=== PATIENT | female | born 1940 | race Caucasian/White ===

== ENCOUNTER 2020-11-11 17:35 | Inpatient (IN) | payer MEDICARE, OTHER ==
[~2020-11-11] VITALS: Ht 144.8 cm; Wt 41.5 kg
[2020-11-12 03:31] LABS: HEMOGLOBIN 10.8 gm/dl (12.3-15.3); RED BLOOD COUNT 3.62 M/UL (4.00-5.10); WHITE BLOOD COUNT 7.9 K/UL (4.5-11.0)
[2020-11-12 04:03] LABS: BUN/CREATININE RATIO 16 (0-10)
[2020-11-12] MEDS ORDERED: NITROGLYCERIN0.4 MG SL (07:22)
[2020-11-12] MEDS ORDERED: NORVASC5 MG PO (07:23)
[2020-11-12] MEDS ORDERED: CLOPIDOGREL75 MG PO (07:23)
[2020-11-12] MEDS ORDERED: FUROSEMIDE20 MG PO (07:24)
[2020-11-12] MEDS ORDERED: ATORVASTATIN CA80 MG PO (07:24)
[2020-11-12] MEDS ORDERED: LOPRESSOR 50 MG50 MG PO (07:25)
[2020-11-12] MEDS ORDERED: K-TAB ER10 MEQ PO (07:26)
[2020-11-12] MEDS ORDERED: ATIVAN 1MG TABLE1 MG PO (12:28)
[2020-11-12] MEDS ORDERED: LISINOPRIL20 MG PO (12:28)
[2020-11-13 06:37] LABS: HEMOGLOBIN 9.5 gm/dl (12.3-15.3)
[2020-11-13 06:39] LABS: RED BLOOD COUNT 3.03 M/UL (4.00-5.10); WHITE BLOOD COUNT 11.2 K/UL (4.5-11.0)
[2020-11-13 07:09] LABS: BUN/CREATININE RATIO 16 (0-10)
[2020-11-14 06:50] LABS: BUN/CREATININE RATIO 18 (0-10)
[2020-11-14 06:56] LABS: HEMOGLOBIN 9.5 gm/dl (12.3-15.3); RED BLOOD COUNT 3.21 M/UL (4.00-5.10)
[2020-11-14 07:01] LABS: WHITE BLOOD COUNT 7.8 K/UL (4.5-11.0)
[2020-11-15 04:34] LABS: BUN/CREATININE RATIO 25 (0-10)
[2020-11-15 05:10] LABS: HEMOGLOBIN 9.5 gm/dl (12.3-15.3); RED BLOOD COUNT 3.16 M/UL (4.00-5.10); WHITE BLOOD COUNT 7.4 K/UL (4.5-11.0)
[2020-11-16 10:02] LABS: WHITE BLOOD COUNT 5.9 K/UL (4.5-11.0)
[2020-11-16 10:03] LABS: HEMOGLOBIN 11.6 gm/dl (12.3-15.3); RED BLOOD COUNT 3.75 M/UL (4.00-5.10)
[2020-11-17 05:20] LABS: HEMOGLOBIN 10.4 gm/dl (12.3-15.3)
[2020-11-17 05:24] LABS: RED BLOOD COUNT 3.36 M/UL (4.00-5.10); WHITE BLOOD COUNT 8.5 K/UL (4.5-11.0)
[2020-11-18 07:30] LABS: HEMOGLOBIN 10.4 gm/dl (12.3-15.3); RED BLOOD COUNT 3.47 M/UL (4.00-5.10); WHITE BLOOD COUNT 8.9 K/UL (4.5-11.0)
[2020-11-19 03:40] LABS: HEMOGLOBIN 10.2 gm/dl (12.3-15.3); RED BLOOD COUNT 3.29 M/UL (4.00-5.10); WHITE BLOOD COUNT 8.3 K/UL (4.5-11.0)
[2020-11-20 04:03] LABS: HEMOGLOBIN 10.6 gm/dl (12.3-15.3); RED BLOOD COUNT 3.43 M/UL (4.00-5.10); WHITE BLOOD COUNT 8.8 K/UL (4.5-11.0)
[2020-11-20 04:32] LABS: BUN/CREATININE RATIO 45 (0-10)
[2020-11-21 06:42] LABS: HEMOGLOBIN 9.8 gm/dl (12.3-15.3); RED BLOOD COUNT 3.17 M/UL (4.00-5.10); WHITE BLOOD COUNT 10.5 K/UL (4.5-11.0)
[2020-11-21 07:12] LABS: BUN/CREATININE RATIO 38 (0-10)
[2020-11-21] MEDS ORDERED: ASPIRIN EC325 MG PO (10:49)
[2020-11-22 04:21] LABS: HEMOGLOBIN 10.5 gm/dl (12.3-15.3); RED BLOOD COUNT 3.4 M/UL (4.00-5.10)
[2020-11-22 04:42] LABS: BUN/CREATININE RATIO 42 (0-10)
[2020-11-23 06:20] LABS: BUN/CREATININE RATIO 34 (0-10)
[2020-11-23 06:23] LABS: HEMOGLOBIN 10.2 gm/dl (12.3-15.3); RED BLOOD COUNT 3.32 M/UL (4.00-5.10); WHITE BLOOD COUNT 10.4 K/UL (4.5-11.0)
[2020-11-25 04:09] LABS: HEMOGLOBIN 10.6 gm/dl (12.3-15.3); RED BLOOD COUNT 3.47 M/UL (4.00-5.10); WHITE BLOOD COUNT 10.5 K/UL (4.5-11.0)
[2020-11-25 04:30] LABS: BUN/CREATININE RATIO 44 (0-10)
--- NOTE | 2020-11-25 11:04 | NUR ---
LATE ENTRY FOR 11/21/20 AT 1745THE PATIENTS SON HAD JUST LEFT [facility] AND PARTIALLY CLOSED THE DOOR I HAD NOTICED THE ALARM HAD NOT WENT OFF AND THE DOOR WAS PARTIALLY CLOSED SO I WENT IN TO CHECK ON HER AND FOUND THE PATIENT SITTING UP IN THE FLOOR AT THE FOOT OF THE BED. KOLBY THE BROILER MANAGER HELPED ME PLACE HER BACK INTO BED AND I COMPLETED A HEAD TO TOE ASSESSMENT. THE PATIENT HAD A SKIN TEAR WITH SOME BRUISING TO THE RIGHT ELBOW, NO OTHER OPEN PLACES OR WOUNDS NOTICED. I CALLED DR PAREKH AND NOTIFIED HIM AND HE THEN ORDERED A RIGHT ELBOW AND RIGHT PELVIC XRAY, BOTH WERE PLACED STAT. DOUBLE-BED ALARMS RECHECKED AND WERE FUNCTIONING BED RAILS UP AND CALL FARMER WITHIN REACH; PATIENT IS NON COMPLIANT DUE TO HER CONDITION.
[2020-11-28 06:25] LABS: HEMOGLOBIN 10.2 gm/dl (12.3-15.3); RED BLOOD COUNT 3.34 M/UL (4.00-5.10); WHITE BLOOD COUNT 12.6 K/UL (4.5-11.0)
[2020-11-28 07:01] LABS: BUN/CREATININE RATIO 41 (0-10)
[2020-11-29 04:03] LABS: RED BLOOD COUNT 3.23 M/UL (4.00-5.10); WHITE BLOOD COUNT 11.1 K/UL (4.5-11.0)
--- NOTE | 2020-11-30 06:16 | NUR ---
NOTIFIED MD GASTROENTEROLOGY PROFESSOR OF REDNESS,ITCHING,PAIN, AND WELT ABOVE IV SITE APPROXIMATELY 5 MINUTES AFTER VANC STARTED. MD STATED HE WAS NOT CONCERNED ABOUT ALLERGIC REACTION AND TO START NEW IV SITE AND INFUSE VANC. NEW IV INSERTED PER RONEY MARIE RN. VANC RESTARTED AT 0620. INSTRUCTED PT TO CALL OUT IF SYMPTOMS STARTED AT NEW IV SITE OR ANY NEW SYMPTOMS PRESENTED. PT VERBALIZED UNDERSTANDING AND AGREEMENT.
[2020-11-30] MEDS ORDERED: ATIVAN 1MG TABLE1 MG PO (10:12)
[2020-11-30] MEDS ORDERED: CHRONULAC20 GM/30 M PO (10:12)
[2020-11-30] MEDS ORDERED: LISINOPRIL10 MG PO (10:12)
[2020-11-30] MEDS ORDERED: ACETAMINOPHEN325 MG PO (10:12)
[2020-11-30] MEDS ORDERED: ASPIRIN EC325 MG PO (10:12)
[2020-11-30] MEDS ORDERED: DOCUSATE SODIU100 MG PO (10:12)
[2020-11-30] MEDS ORDERED: THERAGRAN M TAB1 EA PO (10:12)
[2020-11-30] MEDS ORDERED: QUETIAPINE FUMA25 MG PO (10:12)
[2020-11-30] MEDS ORDERED: HYDROCODON-ACE1 EAC4 PO (10:12)
[2020-11-30] MEDS ORDERED: LOPRESSOR 25 MG25 MG PO (10:12)
[2020-11-30] MEDS ORDERED: ATORVASTATIN CA20 MG PO (10:12)
== END 2020-11-30 13:53 | DRG 481 ==
LOC: M/S 21:17
PROVIDERS: Internal Medicine; Internal Medicine Infectious Disease; Orthopaedic Surgery; ADMIT Internal Medicine
PROC: 0QS636Z Reposition Right Upper Femur with Intramedullary Internal Fixation Device, Percutaneous Approach (ICD-10-PCS; principal; 2020-11-12 09:00)
DX: S72.141A Displaced intertrochanteric fracture of right femur, initial encounter for closed fracture (principal); N17.9 Acute kidney failure, unspecified; N39.0 Urinary tract infection, site not specified; F05 Delirium due to known physiological condition; W01.0XXA Fall on same level from slipping, tripping and stumbling without subsequent striking against object, initial encounter; I25.10 Atherosclerotic heart disease of native coronary artery without angina pectoris; I10 Essential (primary) hypertension; Z20.822 Contact with and (suspected) exposure to COVID-19; E78.5 Hyperlipidemia, unspecified; N81.4 Uterovaginal prolapse, unspecified; F03.90 Unspecified dementia, unspecified severity, without behavioral disturbance, psychotic disturbance, mood disturbance, and anxiety; E86.0 Dehydration; Z95.5 Presence of coronary angioplasty implant and graft; Z87.891 Personal history of nicotine dependence; Z79.01 Long term (current) use of anticoagulants; Z79.82 Long term (current) use of aspirin
CPT/HCPCS: 36415; 70450; 70551; 71045; 73080; 73502; 76000; 80048; 80053; 80061; 81001; 82607; 83735; 84439; 84443; 85025; 85027; 85652; 86140; 87086; 87635; 93005; 94760; 97110; 97110-GP-CQ; 97116; 97116-GP-CQ; 97162; 97167; 97530; 97530-GP-CQ; 97535; C1713; J0690; J0696; J1170; J1650; J2001; J2270; J2405; J2704; J2710; J3010; J7120